=== PATIENT | female | born 2000 | race Caucasian/White ===

== ENCOUNTER 2018-08-30 10:22 | Emergency (ER) | payer OTHER ==
[2018-08-30] MEDS ORDERED: NS 0.9% 1000 ML** 2,000 ML IV ONE (10:33)
--- NOTE | 2018-08-30 10:55 | ED ---
Complex/Multi-Sys Presentation - HPI Summary HPI Summary: This patient is a 18 year old F presenting to ED with a chief complaint of swollen tonsils, fever, chills, cough, diaphoresis, myalgia, and CHAVARRIA since 2-3 days ago. She went to [facility] yesterday with temp of 103.6F and she was tested for strep and mono which were negative. She was also given Rx of Amoxicillin. This morning she found her temp to be 104F. The patient rates the pain 7/10 in severity. Symptoms aggravated by nothing. Symptoms alleviated by nothing. Patient reports post nasal drip with clear sputum and constipation since 2 days ago. Patient denies N/V/D. She had strep a few months ago. She has not had her flu shot. She says that she had her menstrual cycle for a 1 week when she wasn t supposed to and has little bleeding now. She is on BCP. - History Of Current Complaint Chief Complaint: EDFever Time Seen by Provider: 08/30/18 10:32 Hx Obtained From: Patient Onset/Duration: Sudden Onset, Lasting Days - since 2-3 days ago, Still Present Timing: Constant, Days Severity Currently: Moderate Severity Initially: Moderate Aggravating Factor(s): nothing Alleviating Factor(s): nothing Associated Signs And Symptoms: Positive: Headache, Cough, Fever, Diaphoresis, Other - swollen tonsils, chills, myalgia, post nasal drip with clear sputum and constipation. Negative: Nausea, Vomiting, Diarrhea - Allergies/Home Medications Allergies/Adverse Reactions: Allergies Allergy/AdvReac Type Severity Reaction Status Date / Time No Known Allergies Allergy Verified 08/30/18 10:28 PMH/Surg Hx/FS Hx/Imm Hx Endocrine/Hematology History: Denies: Hx Diabetes Cardiovascular History: Denies: Hx Coronary Artery Disease, Hx Hypertension Infectious Disease History: No Infectious Disease History: Denies: Traveled Outside the [place] in Last 30 Days - Family History Known Family History: Negative: Cardiac Disease, Hypertension, Diabetes - Social History Alcohol Use: Occasionally Hx Substance Use: Yes Substance Use Type: Reports: Marijuana Hx Tobacco Use: Yes Type: Cigarettes Amount Used/How Often: 2x a week Review of Systems Positive: Fever, Chills, Skin Diaphoresis Negative: Erythema Positive: Nasal Discharge - post nasal drip with clear sputum , Other - swollen tonsils. Negative: Sore Throat Negative: Chest Pain Positive: Cough. Negative: Shortness Of Breath Positive: Other - constipation. Negative: Abdominal Pain, Vomiting, Nausea Negative: dysuria, hematuria Positive: Myalgia. Negative: Edema Negative: Rash Neurological: Other - denies dizziness Positive: Headache All Other Systems Reviewed And Are Negative: Yes Physical Exam - Summary Physical Exam Summary: Constitutional: Well-developed, Well-nourished, Alert. (-) Distressed Skin: Warm, Dry HENT: Atraumatic. Massive tonsils with exudate bilaterally. No trismus. Eyes: Conjunctiva normal Neck: Musculoskeletal ROM normal neck. (-) JVD, (-) Stridor, (-) Tracheal deviation Cardio: Rhythm regular, rate normal, Heart sounds normal; Intact distal pulses; The pedal pulses are 2+ and symmetric. Radial pulses are 2+ and symmetric. (-) Murmur Pulmonary/Chest wall: Effort normal. (-) Respiratory distress, (-) Wheezes, (-) Rales Abd: Soft, (-) tenderness, (-) Distension, (-) Guarding, (-) Rebound Musculoskeletal: (-) Edema Lymph: (-) Cervical adenopathy Neuro: Alert, Oriented x3 Psych: Mood and affect Normal Triage Information Reviewed: Yes Vital Signs On Initial Exam: Initial Vitals Temp Pulse Resp BP Pulse Ox 102.8 F 126 16 127/95 97 08/30/18 10:26 08/30/18 10:26 08/30/18 10:26 08/30/18 10:26 08/30/18 10:26 Vital Signs Reviewed: Yes Diagnostics - Vital Signs Vital Signs Temp Pulse Resp BP Pulse Ox 08/30/18 10:26 102.8 F 126 16 127/95 97 - Laboratory Result Diagrams: 08/30/18 11:37 08/30/18 11:37 Lab Statement: Any lab studies that have been ordered have been reviewed, and results considered in the medical decision making process. Re-Evaluation - Re-Evaluation First Eval Re-Evaluation Time: 13:55 Comment: Discussed results and plan for discharge with the patient. Patient understands and agrees with this plan. Complex Multi-Symp Course/Dx Assessment/Plan: This patient is a 18 year old F presenting to ED with a chief complaint of swollen tonsils, fever, chills, cough, diaphoresis, myalgia, and CHAVARRIA since 2-3 days ago. In the ED course, the patient was given fluids. The patient will be discharged with dx of viral phayngitis. The patient is currently on Augmentin. Patient understands and agrees with this plan. - Diagnoses Differential Diagnoses/HQI/PQRI: Other - viral pharyngitis Provider Diagnoses: Viral pharyngitis Discharge - Sign-Out/Discharge Documenting (check all that apply): Patient Departure - discharge Patient Received Moderate/Deep Sedation with Procedure: No - Discharge Plan Condition: Stable Disposition: HOME Patient Education Materials: Pharyngitis (ED) Referrals: [facility] [Outside] - 2 Days Additional Instructions: FOLLOW UP WITH YOUR PRIMARY CARE PHYSICIAN IN 2 DAYS. SEE REFERRAL IF YOU DON'T HAVE A PRIMARY CARE PHYSICIAN. RETURN TO THE EMERGENCY DEPARTMENT FOR CHANGING OR WORSENING SYMPTOMS. - Attestation Statements Document Initiated by Scribe: Yes Documenting Scribe: Pratik Owen Provider For Whom Scribe is Documenting (Include Credential): Gage Penny MD Scribe Attestation: Pratik Miranda, scribed for Gage Penny MD on 08/30/18 at 1355. Status of Scribe Document: Ready
[2018-08-30 11:07] LABS: Rapid Strep Molecular Negative (Negative)
[2018-08-30 11:15] LABS: Influenza A Molecular NEGATIVE (Negative); Influenza B Molecular NEGATIVE (Negative)
[2018-08-30 11:47] LABS: ABS Lymphocytes 1.2 10^3/ul (1.0-4.8); ABS Monocytes 0.7 10^3/ul (0-0.8); ABS Neutrophils 12.7 10^3/ul (1.5-7.7); Hematocrit 37 % (35-47); Hemoglobin 12.3 g/dL (12.0-16.0); Lymphocyte % 8.1 %; Mean Corpuscular HGB Conc 34 g/dL (31-36); Mean Corpuscular Hemoglobin 30 pg (27-31); Mean Corpuscular Volume 89 fL (80-97); Mean Platelet Volume 8.6 fL (7.4-10.4); Platelet Count 210 10^3/uL (150-450); Red Blood Count 4.13 10^6 /uL (3.70-4.87); Red Cell Distribution Width 13 % (10.5-15); White Blood Count 14.6 10^3/uL (3.5-10.8)
[2018-08-30 11:57] LABS: Activated Partial Thrombo Time 27.4 seconds (26.0-36.3); INR 1.4 (0.82-1.09)
[2018-08-30] MEDS ORDERED: Dexamethasone IV* 4 MG/ML 1 ML (4 MG) IV SLOW PU ONE (11:58)
[2018-08-30] MEDS ORDERED: Ketorolac INJ* 30 MG/ML 1 ML VIAL IV PUSH ONE (11:58)
[2018-08-30 12:12] LABS: ALT 8 U/L (7-52); AST 11 U/L (13-39); Albumin/Globulin Ratio 1.4 (1-3); Alkaline Phosphatase 35 U/L (34-104); Anion Gap 9 mmol/L (2-11); BUN/Creatinine Ratio 7.2 (8-20); Blood Urea Nitrogen 6 mg/dL (6-24); CO2 Carbon Dioxide 19 mmol/L (22-32); Calcium 8.7 mg/dL (8.6-10.3); Chloride 104 mmol/L (101-111); EGFR Non-African American 87.6 (>60); Globulin 2.9 g/dL (2-4); Glucose 101 mg/dL (70-100); Potassium 3.4 mmol/L (3.5-5.0); Sodium 132 mmol/L (135-145); Total Protein 6.9 g/dL (6.4-8.9)
[2018-08-30] MEDS ORDERED: Acetaminophen TAB* 325 MG PO ONE (12:39)
[2018-08-30 12:59] LABS: Urine Appearance Clear; Urine Bacteria 1+ (Absent); Urine Bilirubin Negative (Negative); Urine Blood 2+ (Negative); Urine Color Yellow; Urine Glucose Negative (Negative); Urine Ketones 1+ (Negative); Urine Nitrite Negative (Negative); Urine Protein Negative (Negative); Urine Red Blood Cell Trace(0-2/hpf) (Absent); Urine Specific Gravity 1.004 (1.010-1.030); Urine Squamous Epithelial Cell Present (Absent); Urine Urobilinogen Negative (Negative); Urine White Blood Cell Trace(0-5/hpf) (Absent)
[2018-08-30 13:08] LABS: HCG Pregnancy < 0.60 mIU/mL
[2018-08-30 14:06] VITALS: BP 121/64
== END 2018-08-30 14:05 | disposition home or self-care (01) ==
LOC: ED 10:22
DX: J02.9 Acute pharyngitis, unspecified (principal); R05 Cough; R50.9 Fever, unspecified; R51 Headache
CPT/HCPCS: 36415; 80053; 81003; 81015; 83605; 84484; 84702; 85025; 85610; 85730; 86308; 87040; 87086; 87651; 96361; 96374; 96375; 99283; A9270-GY; J1100; J1885